=== PATIENT | male | born 1960 | race Caucasian/White ===

== ENCOUNTER 2019-02-16 10:36 | Emergency (ER) | payer SELFPAY ==
[~2019-02-16] VITALS: Ht 165.1 cm; Wt 57.2 kg
[2019-02-16] MEDS ORDERED: ETOMIDATE 2 MG/ML VIAL IV ONE ×2 (10:39→12:30)
[2019-02-16] MEDS ORDERED: SUCCINYLCHOLINE CHLORIDE 20 MG/ML VIAL IV ONE ×2 (10:39→12:30)
[2019-02-16] MEDS ORDERED: LORAZEPAM INJ 2 MG/ML VIAL IVP ONE (11:00)
[2019-02-16] MEDS ORDERED: LORAZEPAM INJ 2 MG/ML VIAL ONE (11:07)
[2019-02-16 11:11] LABS: BASOPHILS % (AUTO) 0.7 % (0.0-2.0); EOSINOPHILS % (AUTO) 3.3 % (0.0-6.0); HEMATOCRIT 27 % (39-51); HEMOGLOBIN 8.2 g/dL (13.5-17.5); LYMPHOCYTES # (AUTO) 1.8 /CMM (0.8-4.8); MEAN CORPUSCULAR HGB CONC 30 g/dl (31.0-36.0); MEAN CORPUSCULAR VOLUME 76 fL (80-96); MONOCYTES # (AUTO) 0.6 /CMM (0.1-1.30); MONOCYTES % (AUTO) 9.5 % (2.0-12.0); NEUTROPHILS # (AUTO) 3.7 /CMM (1.8-8.9); NEUTROPHILS % (AUTO) 58.5 % (43.0-81.0); PLATELET COUNT (AUTO) 238 /CMM (150-450); RED BLOOD CELL COUNT(AUTO) 3.57 MIL/uL (4.5-6.0); WHITE BLOOD COUNT (AUTO) 6.4 K/uL (4.3-11.0)
--- NOTE | 2019-02-16 11:11 | NUR ---
PATIENT BIB 39 FROM [facility] C/O SEIZURE WITNESSED FOR 2-3MINS. PATIENT SLEEPING, AROUSABLE TO PAINFUL STIMULI. AWAITING
--- NOTE | 2019-02-16 11:12 | NUR ---
IV LINE STARTED ON RIGHT AC g18. BLOOD COLLECTED BY PROFILE SAW SETUP OPERATOR
[2019-02-16 11:18] LABS: CALCIUM, SERUM 8.4 mg/dL (8.5-10.1); POTASSIUM 3.2 mmol/L (3.5-5.1)
[2019-02-16 11:24] LABS: BILIRUBIN,DIRECT 0.1 mg/dL (0.0-0.2); BILIRUBIN,TOTAL 0.3 mg/dL (0.2-1.0); TOTAL PROTEIN, SERUM 6.7 g/dL (6.4-8.2)
--- NOTE | 2019-02-16 11:25 | NUR ---
RADIOLOGY AT BEDSIDE
--- NOTE | 2019-02-16 11:35 | NUR ---
PT IS WHEELED TO CT SCAN VIA [facility].
--- NOTE | 2019-02-16 11:47 | NUR ---
[facility] on-call paged- Dr. Azar
--- NOTE | 2019-02-16 11:50 | NUR ---
PT IS BACK FROM THE CT SCAN, PER DR. ZHONG PT IS HAVING BRAIN BLEED.
[2019-02-16] MEDS ORDERED: PROPOFOL 100 ML ONE (11:53)
[2019-02-16] MEDS ORDERED: LIDOCAINE 100MG/5ML DISP SYR ONE (11:54)
--- NOTE | 2019-02-16 11:54 | NUR ---
2ND IV LINE ESTABLISHED LIDOCAINE 100MG IVP GIVEN.
--- NOTE | 2019-02-16 11:55 | NUR ---
RT AT BEDSIDE AND DR. ZHONG FOR INTUBATION AND VENT SET UP.
--- NOTE | 2019-02-16 11:56 | NUR ---
ETOMIDATE 20MG AND FOLLOWED BY SUCCINYLCHOLINE 80MG IVP GIVEN. PER DR. ZHONG VERBAL ORDER.
--- NOTE | 2019-02-16 11:57 | NUR ---
INTUBATION DONE BY , ET SIZE 7.5 AND 22 AT THE LIP, POSITIVE COLOR CHANGE. AND EQUAL CHEST RISE.
--- NOTE | 2019-02-16 12:00 | NUR ---
CALL BACK [facility] ETA 20 MINUTES, ACCEPTED BY CHRIS CISNEROS, WANTS FACESHEET AND CLINICALS FAXED
[2019-02-16 12:05] VITALS: BP 173/103
[2019-02-16] MEDS ORDERED: PROPOFOL 100 ML IV ONE (12:05)
--- NOTE | 2019-02-16 12:05 | NUR ---
@ 1157 pt. is orally intubated for airway protection with 7.5 ET tube secured @ 22 cm [id number]-lips. co2 detector changed to gold color. breath sounds clear bilateral with symmetrical chest rise. moist fogging on et tube each ambu bbagging. vent parameters below as order: ac 14 vt 450 fio2 100% peep +5 vent is plugged into red outlet with alarms on and functioning. ambu bag @ bedside. Addendum: 02/16/19 at 1226 by JEAN CLAUDE JAMES RT Amended: Links added.
--- NOTE | 2019-02-16 12:05 | NUR ---
PRATIBHA CALLED BY ADMITTING TO DETERMINE IDENTITY SINCE HE WAS PICKED UP FROM A [facility]
--- NOTE | 2019-02-16 12:10 | NUR ---
ADDENDUM: Intravenous End Time Documentation: Ladira 1 gram IVPB: start time: 1210 ; end time: 1310 : IV site: 18 RAC Port # 2
--- NOTE | 2019-02-16 12:22 | NUR ---
FACESHEET AND CLINICAL SUMMARY FAXED TO [phone] REQUESTED BY ERASMO [phone] DICTATION NOT YET AVAILABLE
[2019-02-16] MEDS ORDERED: ENALAPRILAT INJ (1.25 MG/ML) 1.25 MG/ML VIAL IV ONE (12:28)
[2019-02-16] MEDS ORDERED: ENALAPRILAT INJ (1.25 MG/ML) 1.25 MG/ML VIAL IV PRN (12:30)
[2019-02-16] MEDS ORDERED: LIDOCAINE 100MG/5ML DISP SYR IV ONE (12:30)
[2019-02-16] MEDS ORDERED: MANNITOL 12.5 GM/50 ML VIAL IV ONE (12:30)
[2019-02-16] MEDS ORDERED: LEVETIRACETAM (500MG) 1,000 MG in IV NS 0.9% 100 ML IV SCH (12:30)
--- NOTE | 2019-02-16 12:35 | NUR ---
JONES CATHETER INSERTED
--- NOTE | 2019-02-16 12:41 | NUR ---
MANNITOL 20% 500ML INITIATED TO LEFT AC g18, CONNECTED TO IV FILTER
[2019-02-16 12:52] VITALS: BP 190/100
--- NOTE | 2019-02-16 12:53 | NUR ---
REPORT GIVEN TO THE RN - [facility]; CONTINUE PLAN OF CARE. THE PATIENT'S BP REMAINED HIGH; THE PATIENT WAS GIVEN VASOTEC MANNITOL IVPB - GIVEN, INFUSING WHILE TRANSFER TO [facility]
--- NOTE | 2019-02-16 12:56 | NUR ---
DR. ZHONG IS AWARE OF THE HIGH BLOOD PRESSURE; CLEARED FOR TRANSFER TO [facility], MANNITOL IVPB ONGOING WHILE TRANSFER TO [facility]
[2019-02-16] MEDS ORDERED: IV MANNITOL 20% 500 ML in PREMIX 1 EA IV PRN (13:00)
--- NOTE | 2019-02-16 13:00 | NUR ---
PATIENT LEFT ER VIA GURNEY TO TRANSFER TO [facility] ICU. ALL BELONGINGS WITH PATIENT.
--- NOTE | 2019-02-16 13:02 | NUR ---
SPOKE WITH JUAN JOSE CHRISTENSEN OF DR KEE AND GAVE REPORT
--- NOTE | 2019-02-16 13:22 | NUR ---
PLACED CALL TO [facility] ([phone] EXT [phone]) AND GAVE REPORT TO KEN SHEEHAN
== END 2019-02-16 13:00 | disposition short-term general hospital (02) ==
LOC: ER 10:38
DX: I62.9 Nontraumatic intracranial hemorrhage, unspecified (principal); S00.03XA Contusion of scalp, initial encounter; R41.82 Altered mental status, unspecified; X58.XXXA Exposure to other specified factors, initial encounter; Y93.89 Activity, other specified; Y92.89 Other specified places as the place of occurrence of the external cause; Y99.8 Other external cause status
CPT/HCPCS: 31500; 36415; 70450; 71045 ×2; 80048; 80076; 82962; 85025; 85730; 87081; 93005; 94002; 96365; 96368; 96375; 99291; A4216; J0330; J1953; J2001; J2060; J2150 ×2; J3490 ×3; J7030; L0172